=== PATIENT | male | born 1975 | race Two or more races ===

== ENCOUNTER 2020-01-09 08:14 | Emergency (ER) | payer SELFPAY ==
[2020-01-09] MEDS ORDERED: CALCIUM CHLOR(10%) 100MG/ML 10ML SYRINGE IV ONE (08:15)
[2020-01-09] MEDS ORDERED: SODIUM BICARBONATE 8.4% INJ 50ML SYRINGE IV ONE (08:15)
[2020-01-09] MEDS ORDERED: EPINEPHrine HCL 1 MG/10 ML SYRG IV ONE (08:15)
[2020-01-09 08:21] VITALS: BP 0/0
[2020-01-09] MEDS ORDERED: SODIUM BICARBONATE 8.4 % INJ 50ML VIAL IV ONE (08:27)
== END 2020-01-09 08:53 | disposition expired ==
LOC: ER 08:14 → EDBD 08:14 → ER 08:53
DX: I46.9 Cardiac arrest, cause unspecified (principal); J96.90 Respiratory failure, unspecified, unspecified whether with hypoxia or hypercapnia
CPT/HCPCS: 31500; 92950; 99285; J0171